=== PATIENT | female | born 2000 | race Caucasian/White ===

== ENCOUNTER 2018-10-16 15:31 | Emergency (ER) | payer OTHER ==
[~2018-10-16] VITALS: Ht 152.4 cm; Wt 50.9 kg
[2018-10-16] MEDS ORDERED: ACET-2247 PO (15:37)
[2018-10-16] MEDS ORDERED: ACETAMINOPHEN 325 MG TABLET PO ONE (15:45)
[2018-10-16] MEDS ORDERED: CEPHALEXIN MONOHYDRATE 500 MG CAPSULE PO ONE (17:00)
[2018-10-16] MEDS ORDERED: IBUPROFEN 600 MG TABLET PO ONE (17:00)
[2018-10-16] MEDS ORDERED: SODIUM CHLORIDE 0.9% 1,000 ML IV ONE (17:15)
[2018-10-16 18:07] VITALS: BP 108/69
== END 2018-10-16 18:13 | disposition home or self-care (01) ==
LOC: EMS 15:31
DX: N61.0 Mastitis without abscess (principal); R00.0 Tachycardia, unspecified
CPT/HCPCS: 93005; 99284; J7030

== ENCOUNTER 2022-07-20 10:38 | Emergency (ER) | payer OTHER ==
[~2022-07-20] VITALS: Ht 152.4 cm; Wt 59.1 kg
[~2022-07-20 10:38] MED LIST: ACET-2247 PO
[2022-07-20 11:53] LABS: APPEARANCE,URINE CLEAR (CLEAR); BILIRUBIN,URINE NEGATIVE (NEGATIVE); GLUCOSE, URINE (UA) NEGATIVE (NEGATIVE); KETONES,URINE NEGATIVE (NEGATIVE); LEUKOCYTE ESTERASE ,URINE NEGATIVE (NEGATIVE); NITRATE,URINE NEGATIVE (NEGATIVE); OCCULT BLOOD,URINE NEGATIVE (NEGATIVE); PROTEIN,URINE TRACE mg/dL (NEGATIVE); SPECIFIC GRAVITIY, URINE 1.018 (1.003-1.030); UROBILINOGEN,URINE <=1.0 mg/dL (<=1.0)
[2022-07-20] MEDS ORDERED: LIDOCAINE 5% TRANSDERMAL PATCH TD ONE (12:30)
[2022-07-20] MEDS ORDERED: IBUPROFEN 600 MG TABLET PO ONE (12:30)
[2022-07-20] MEDS ORDERED: CYCL-448 PO (12:54)
[2022-07-20] MEDS ORDERED: IBUP-1492 PO (12:54)
[2022-07-20 13:06] VITALS: BP 124/70
== END 2022-07-20 13:12 | disposition home or self-care (01) ==
LOC: EMS 10:40
DX: M54.50 Low back pain, unspecified (principal); Z98.890 Other specified postprocedural states
CPT/HCPCS: 81003; 84703; 99283